=== PATIENT | female | born 1970 | race Hispanic/Latino ===

== ENCOUNTER 2016-05-12 18:17 | Emergency (ER) | payer SELFPAY ==
[2016-05-12 18:32] VITALS: BP 145/95
--- NOTE | 2016-05-12 18:44 | Emergency Department Report ---
Chief Complaint: Nausea/Vomiting/Diarrhea Stated Complaint: HBP/NAUSEA/MIGRAINE/SIZZINESS/FATIGUE Time Seen by Provider: 05/12/16 18:36 - HPI History of Present Illness: Patient presents with the feeling of not feeling "right." She admits to nausea , headache that started a few days ago. She also admits to cough x 2 months. Admits to sob, fever, chills. 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 She admits to having her typical migraine headache. She denies chest pain but admits to chest tightness , dizziness. She does have a history of asthma, and COPD - ROS Review of Systems: All other systems unremarkable except documentation in HPI - Exam Vital Signs: Vital Signs 05/12/16 18:25 Temperature 98.6 F Pulse Rate 105 H Respiratory 18 Rate Blood Pressure 145/95 O2 Sat by Pulse 99 Oximetry Physical Exam: Gen: Female well-developed and nourished, no apparent distress noted, ambulatory. Cardiovascular: Heart sounds present S1-S2, no murmur, gallop, edema or ectopy noted, 2+ pulses upper and lower extremities Respiratory: Chest symmetry with respirations, lungs clear to auscultate upper and lower lobes, respirations even and unlabored, no rales, rhonchi, crackles noted. Abdomen: bowel sounds present, soft, nondistended, nontender, no rigidity, guarding or rebound tenderness Psych: AxOx3, answers questions appropriately, mood full range, affect normal, normal speech and tone. MSE screening note: Focused history and physical exam performed. Due to findings the following was ordered: seen by provider, laboratory and radiology studies ordered, and to go to main ED to be seen by physician ED Medical Decision Making - Medical Decision Making seen by provider, laboratory and radiology studies ordered, and to go to main ED to be seen by physician ED Disposition for MSE Condition: Stable
[2016-05-12 19:14] LABS: Basophils % (Auto) 0.5 % (0.0-1.8); Eosinophils % (Auto) 2.4 % (0.0-4.3); Hematocrit 40.1 % (30.3-42.9); Hemoglobin 13.3 gm/dl (10.1-14.3); Mean Corpuscular HGB Conc 33 % (30-34); Mean Corpuscular Hemoglobin 29 pg (28-32); Mean Corpuscular Volume 87 fl (79-97); Platelet Count 201 K/mm3 (140-440); Red Blood Count 4.61 M/mm3 (3.65-5.03); Red Cell Distribution Width 13.9 % (13.2-15.2); White Blood Count 8.1 K/mm3 (4.5-11.0)
[2016-05-12 19:36] LABS: Alanine Aminotransferase 22 units/L (7-56); Albumin 4.3 g/dL (3.9-5); Albumin/Globulin Ratio 1.5 %; Alkaline Phosphatase 67 units/L (35-129); BUN/Creatinine Ratio 17.14; Bilirubin,Total 0.2 mg/dL (0.1-1.2); Blood Urea Nitrogen 12 mg/dL (7-17); Calcium 8.9 mg/dL (8.4-10.2); Carbon Dioxide 21 mmol/L (22-30); Glucose 102 mg/dL (65-100); Lipase 47 units/L (13-60); Total Protein 7.2 g/dL (6.3-8.2)
[2016-05-12 19:37] LABS: Anion Gap 22 mmol/L; Chloride 98.3 mmol/L (98-107); Potassium 4.2 mmol/L (3.6-5.0); Sodium 137 mmol/L (137-145)
--- NOTE | 2016-05-14 15:15 | ED Elopement Review ---
ED Pt Elopement review - Results review Lab results: Laboratory Tests 05/12/16 05/12/16 19:01 19:01 WBC 8.1 RBC 4.61 Hgb 13.3 Hct 40.1 MCV 87 MCH 29 MCHC 33 RDW 13.9 Plt Count 201 Lymph % (Auto) 33.0 Armstrong % (Auto) 5.6 Eos % (Auto) 2.4 Baso % (Auto) 0.5 Lymph # 2.7 Armstrong # 0.5 Eos # 0.2 Baso # 0.0 Seg Neutrophils % 58.5 Seg Neutrophils # 4.7 Sodium 137 Potassium 4.2 Chloride 98.3 Carbon Dioxide 21 L Anion Gap 22 BUN 12 Creatinine 0.7 Estimated GFR > 60 BUN/Creatinine Ratio 17.14 Glucose 102 H Calcium 8.9 Total Bilirubin 0.2 AST 22 ALT 22 Alkaline Phosphatase 67 Troponin T < 0.010 Total Protein 7.2 Albumin 4.3 Albumin/Globulin Ratio 1.5 Lipase 47 - Call Back decision Pt Call Back Decision: No action required
== END 2016-05-12 23:02 | disposition left against medical advice (07) ==
LOC: ED 18:17
DX: G43.909 Migraine, unspecified, not intractable, without status migrainosus (principal); R03.0 Elevated blood-pressure reading, without diagnosis of hypertension; Z53.21 Procedure and treatment not carried out due to patient leaving prior to being seen by health care provider
CPT/HCPCS: 36415; 80053; 83690; 84484; 85025